=== PATIENT | male | born 1995 | race Asian ===

== ENCOUNTER 2018-04-04 01:02 | Emergency (ER) | payer OTHER ==
[2018-04-04 01:16] VITALS: TEMP 36.4; O2SAT 96
[2018-04-04] MEDS ORDERED: ONDANSETRON INJ 2 MG/ML 2 ML VIAL ONE (01:26)
[2018-04-04] MEDS ORDERED: ONDANSETRON INJ 2 MG/ML 2 ML VIAL IM STA (01:26)
[2018-04-04 01:51] LABS: BLOOD UREA NITROGEN 15 mg/dl (7-18); CALCIUM 8.5 mg/dl (8.5-10.1); CARBON DIOXIDE 25 mmol/L (21-32); GLUCOSE 84 mg/dl (70-99); POTASSIUM 3.7 mmol/L (3.5-5.1); SODIUM 144 mmol/L (136-145)
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
[2018-04-04 09:30] VITALS: BP 112/66; PULSE 66; O2SAT 98
== END 2018-04-04 09:30 | disposition home or self-care (01) ==
LOC: EDBD 01:02 → C.EDB 01:05
DX: F10.129 Alcohol abuse with intoxication, unspecified (principal)